=== PATIENT | male | born 1965 | race Caucasian/White ===

== ENCOUNTER → 2017-08-06 | Outpatient (REF) ==
[2014-04-07 15:27] VITALS: BMI 34.0
[~2017-08-06] MED LIST: DOCU-416 PO; HYDR-2966 PO; IBUP-1671 PO; OXYC-865 PO; TAMS0.4C25 PO
== END ==
LOC: AUD 11:00
PROVIDERS: ATTEND Internal Medicine
DX: Z01.10 Encounter for examination of ears and hearing without abnormal findings (principal)
CPT/HCPCS: 92552

== ENCOUNTER → 2018-07-29 | Outpatient (REF) ==
[2014-04-07 15:27] VITALS: BMI 34.0
== END ==
LOC: AUD 10:50
PROVIDERS: ATTEND Internal Medicine
DX: Z01.12 Encounter for hearing conservation and treatment (principal)
CPT/HCPCS: 92552